=== PATIENT | male | born 1940 | race Caucasian/White ===

== ENCOUNTER 2019-08-14 17:55 | Emergency (ER) | payer OTHER ==
[~2019-08-14] VITALS: Ht 182.9 cm; Wt 64.3 kg
[2019-08-14] MEDS ORDERED: ABH GEL (18:13)
[2019-08-14 18:40] LABS: HEMATOCRIT 29.3 % (42.0-52.0); HEMOGLOBIN 9.8 gm/dL (14.0-18.0); MCH 31.4 pg (26.0-34.0); MCHC 33.5 g/dL (28.0-37.0); MCV 93.8 fL (80.0-100.0); PLATELET COUNT 145 thou/uL (150-400); RBC 3.12 mil/uL (4.50-6.00); RDW 14.2 % (10.5-14.5); WBC 4.4 thou/uL (4.0-11.0)
[2019-08-14 18:49] LABS: ANION GAP 8 mmol/L (7-16); BUN 31 mg/dL (7-18); CHLORIDE 107 mmol/L (98-107); CO2 30 mmol/L (21-32); CREATININE 1.1 mg/dL (0.7-1.3); GLUCOSE 106 mg/dL (74-106); POTASSIUM 3.2 mmol/L (3.5-5.1); SODIUM 145 mmol/L (136-145)
[2019-08-14 19:07] LABS: ALBUMIN 3.3 g/dL (3.4-5.0); SGOT 51 U/L (15-37); SGPT 22 U/L (30-65); TOTAL BILIRUBIN 0.5 mg/dL (<0.1-1.0); TOTAL PROTEIN 6.5 g/dL (6.4-8.2); TROPONIN-I <0.06 ng/mL (<0.06)
[2019-08-14 19:13] LABS: ABSOLUTE NEUTROPHILS 3.8 thou/uL (1.4-8.2); ATYPICAL LYMPHS 2 %; LARGE PLATELETS FEW; PLATELET ESTIMATE SLIGHTLY DECREASED
[2019-08-14 19:14] LABS: ANISOCYTOSIS SLIGHT
[2019-08-14 20:04] LABS: URINE BILIRUBIN NEGATIVE (Negative); URINE BLOOD NEGATIVE (Negative); URINE CLARITY CLEAR; URINE COLOR YELLOW; URINE GLUCOSE-RANDOM* NEGATIVE (Negative); URINE KETONES TRACE (Negative); URINE LEUKOCYTES-REFLEX NEGATIVE (Negative); URINE NITRITE-REFLEX NEGATIVE (Negative); URINE PROTEIN (DIPSTICK) TRACE (Negative); URINE SPECIFIC GRAVITY 1.025 (1.005-1.035); URINE UROBILINOGEN 0.2 E.U./dl (0.2-1.0)
[2019-08-14] MEDS ORDERED: DIVALPROEX SOD125 M1 PO (20:14)
[2019-08-14] MEDS ORDERED: ESCITALOPRA5 MG/5 ML PO (20:15)
[2019-08-14] MEDS ORDERED: LOPERAMIDE 2 MG2 M1 PO (20:15)
[2019-08-14] MEDS ORDERED: COZAAR 25 MG TA25 M1 PO (20:16)
[2019-08-14] MEDS ORDERED: MELADOX3 MG PO (20:16)
[2019-08-14] MEDS ORDERED: NAMENDA 5 MG TAB5 M1 PO (20:17)
[2019-08-14] MEDS ORDERED: ZYPREXA 5 MG TAB5 M1 PO (20:18)
[2019-08-14] MEDS ORDERED: TRAZODONE 150150 M1 PO (20:19)
[2019-08-14 20:47] VITALS: BP 143/71
--- NOTE | 2019-08-15 10:51 | EKG ---
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
== END 2019-08-14 20:59 | disposition home or self-care (01) ==
LOC: ER 17:55
PROVIDERS: Student in an Organized Health Care Education/Training Program
DX: E87.6 Hypokalemia (principal); R19.7 Diarrhea, unspecified; T50.995A Adverse effect of other drugs, medicaments and biological substances, initial encounter; F03.90 Unspecified dementia, unspecified severity, without behavioral disturbance, psychotic disturbance, mood disturbance, and anxiety; Y92.89 Other specified places as the place of occurrence of the external cause

== ENCOUNTER 2019-11-02 23:22 | Emergency (ER) | payer OTHER ==
[~2019-11-02] VITALS: Ht 172.7 cm; Wt 33.6 kg
--- NOTE | ~2019-11-02 | EMS ---
[address] [address] EMS Patient Care Report Name: GIANNA GOMEZ Room #: DEP LAYLA Regalado#: [id number] Admission: 11/02/19 Attend Phys: Discharge: 11/03/19 Date of : 42 Report #: [id number] THIS REPORT FOR: //name// Report Transmitted: 11/03/2019 08:11 EMS Care Summary [facility] MED-ACT Incident [id number] @ 11/02/2019 22:50 Incident Location [address] [place] [address] Patient GIANNA GOMEZ Male, 79 Years 1940 Patient Address [address] [place] [address] Patient History Dementia,Depression,Anxiety,Insomnia, Patient Allergies Penicillin allergy, Patient Medications Tylenol, Depakote, Seroquel, Lexapro, Melatonin, Lorazepam, Chief Complaint fall with laceration Disposition Transported No Lights/[place] Dispatch Reason Falls Transported To [facility] Narrative EMS was dispatched for a patient who had fallen. Prior to EMS arrival proper PPE was donned including eye protection, gloves and a surgical mask. Upon EMS [address] [address] EMS Patient Care Report Name: GIANNA GOMEZ Room #: DEP Alphonse.#: [id number] Admission: 11/02/19 Attend Phys: Discharge: 11/03/19 Date of : 42 Report #: [id number] arrival a mask was placed on the patient and he walked to the cot. Nursing staff advised he had fallen out of bed and had a laceration on the back of the head. She advised no loss of consciousness. Nursing staff also advised the patient had a history of dementia and this was his normal mentation. EMS loaded the patient into the ambulance and placed him on the monitor. EMS also placed a bandage on the patient's head to control the bleeding. The patient was reassessed with nothing new noted. The patient was taken to [facility] ER for further evaluation. Initial Vitals @23:08P: 64,R: 18,BP: 148/93,Pain: 0/10,GCS: 14,SpO2: 96,Revised Trauma: 12, @23:04P: 65,R: 18,BP: 150/82,Pain: 0/10,GCS: 14,SpO2: 96,Revised Trauma: 12, Assessments @22:57MENTAL:Confused,Person Oriented,Time Oriented,SKIN:HEENT:Head/Face: No Abnormalities,Neck/Airway: No Abnormalities,LUNG SOUNDS:General: No Abnormalities,ABDOMEN:General: No Abnormalities,PELVIS//GI:No Abnormalities,EXTREMITIES:Left Arm: No Abnormalities,Right Arm: No Abnormalities,Left Leg: No Abnormalities,Right Leg: No Abnormalities,PULSE:NEURO:No Abnormalities, Impression Laceration/Abrasion/Hematoma (minor surface trauma) Procedures @22:57ALS AssessmentResponse: UnchangedSucceeded Timeline 22:49,Call Received 22:49,Psap Call 22:50,Dispatched 22:51,En Route 22:56,On Scene 22:57,At Patient 22:57,ALS Assessment,Response: UnchangedSucceeded, 23:04,BP: 150/82 M,PULSE: 65,RR: 18 R,SPO2: 96 Ox,ETCO2: ,BG: ,PAIN: 0,GCS: 14, 23:05,Depart Scene 23:08,BP: 148/93 M,PULSE: 64,RR: 18 R,SPO2: 96 Ox,ETCO2: ,BG: ,PAIN: 0,GCS: 14, 23:12,At Destination 23:32,Call Closed Disclaimer [email or web address] Copyright 2020 [employer] This EMS Care Summary contains data elements from the applicable legal record (which may be displayed differently). It is designed to provide pertinent information for the following purposes: continuity of care, clinical quality, [address] [address] EMS Patient Care Report Name: JASONGIANNA Bubba Room #: DEP ER [place]#: [id number] Admission: 11/02/19 Attend Phys: Discharge: 11/03/19 Date of : 42 Report #: [id number] and state data reporting. The complete legal record is available to ED staff and administrators of the receiving hospital in [facility]'s Patient Tracker. All data is provided "as is."
[~2019-11-02 23:22] MED LIST: ABH GEL; COZAAR 25 MG TA25 M1 PO; DIVALPROEX SOD125 M1 PO; ESCITALOPRA5 MG/5 ML PO; LOPERAMIDE 2 MG2 M1 PO; MELADOX3 MG PO; NAMENDA 5 MG TAB5 M1 PO; TRAZODONE 150150 M1 PO; ZYPREXA 5 MG TAB5 M1 PO
[2019-11-03 01:43] VITALS: BP 147/72
== END 2019-11-03 01:44 ==
LOC: ER 23:22
DX: S01.01XA Laceration without foreign body of scalp, initial encounter (principal); I10 Essential (primary) hypertension; K21.9 Gastro-esophageal reflux disease without esophagitis; G30.9 Alzheimer's disease, unspecified; F41.9 Anxiety disorder, unspecified; W06.XXXA Fall from bed, initial encounter; Y93.89 Activity, other specified; Y92.128 Other place in nursing home as the place of occurrence of the external cause; Y99.8 Other external cause status